=== PATIENT | male | born 1995 | race Caucasian/White ===

== ENCOUNTER 2018-03-26 17:01 | Emergency (ER) | payer MEDICAID, SELFPAY ==
[2018-03-26] MEDS ORDERED: Ondansetron ODT 4 MG TAB ONE (18:39)
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
== END 2018-03-26 19:02 | disposition home or self-care (01) ==
LOC: ERS 17:01
DX: S06.0X9A Concussion with loss of consciousness of unspecified duration, initial encounter (principal); Y04.0XXA Assault by unarmed brawl or fight, initial encounter
CPT/HCPCS: 70450; Q0162